=== PATIENT | female | born 2000 | race African-American/Black ===

== ENCOUNTER → 2020-12-20 13:38 | Outpatient (CLI) | payer OTHER, SELFPAY ==
--- NOTE | ~2020-12-20 | US_ITS ---
EXAMINATION: US thyroid EXAM DATE: 12/20/2020 13:52 INDICATION: E04.9 - Nontoxic goiter, unspecified. TECHNIQUE: Multiple grayscale and Doppler images of the thyroid were obtained (by a technologist who performed the scan) and subsequently reviewed. Individual nodules and recommendations may be reporte d in accordance with TI-RADS system as designated by the 2017 ACR White Paper TI-RADS committee. The re is no prior study for comparison. FINDINGS: The right thyroid lobe measures 4.4 x 1.3 x 1.2 cm, the left measuring 3.4 x 1.0 x 1.1 cm. There is h omogeneous thyroid echogenicity with expected amount of vascularity. No focal suspicious nodules are identified. IMPRESSION: 1. Unremarkable thyroid ultrasound exam. Reviewed, dictated and finalized at location B.
== END ==
PROVIDERS: PCP Family Medicine; Visit Provider Family Medicine
DX: E04.9 Nontoxic goiter, unspecified (principal)
CPT/HCPCS: 76536

== ENCOUNTER 2023-02-26 16:09 | Outpatient (CLI) | payer OTHER, SELFPAY ==
[2023-02-26 17:01] LABS: SARS-CoV-2 RNA PCR Positive (Negative)
== END 2023-02-26 16:10 | disposition home or self-care (01) ==
LOC: ANHLAB 16:10
PROVIDERS: PCP Family Medicine; Visit Provider Physician Assistant
DX: J02.9 Acute pharyngitis, unspecified (principal)
CPT/HCPCS: 87635